=== PATIENT | male | born 1960 | race Caucasian/White ===

== ENCOUNTER 2016-12-12 11:14 | Emergency (ER) | payer MEDICARE ==
--- NOTE | 2016-12-12 11:36 | ERNOTE ---
ER Male HPI Date of Service: 12/12/16 Stated Complaint: UTI Time Seen by Provider: 12/12/16 11:30 Source: patient Exam Limitations: no limitations Immunizations: IMMUNIZATION HX Immunizations Up to Date No History of Influenza Vaccine No Hx Pneumococcal Vaccination No Allergies/Adverse Reactions: Allergies latex Allergy (Verified 12/22/15 15:28) Home Medications: HOME MEDICATIONS Alprazolam [Alprazolam Odt] 2 mg PO QID 02/24/14 [Last Taken Unknown] fentaNYL [Duragesic] 50 mcg ID Q72H 02/24/14 [Last Taken Unknown] Oxycodone HCl [Oxycontin] 40 mg PO HS 07/17/14 [Last Taken Unknown] Oxycodone HCl [Oxycontin] 80 mg PO DAILY 07/17/14 [Last Taken Unknown] Carisoprodol [Soma] 350 mg PO QID 10/25/15 [Last Taken Unknown] Ciprofloxacin HCl [Cipro] 500 mg PO BID #20 tab 12/12/16 [Last Taken Unknown] - History of Present Illness Narrative: 56yo, M, presents to ER for concerns of UTI. Hx of spinal injury and uses self cath at home. He does urinate without cath at times. He reports burning with catheterization for the past few months, although has not had a UA or culture performed since onset. Also reports some dysuria and foul urine odor when he voids without catheter, along with some increase in urinary frequency. Sexual [place] History: Present: not active Modifying Factors - (Worsens): Present: urinating, other - catheterization Associated Symptoms: Present: urinary frequency, loss of bladder control. Absent: fever/chills, nausea, vomiting, abdominal pain Prior Treatment: Present: other - none Review of Systems - Review of Systems Constitutional: Present: fatigue. Absent: fever, chills Respiratory: Absent: shortness of breath, cough Gastrointestinal/Abdominal: Absent: nausea, vomiting, abdominal pain Genitourinary: Present: frequency, dysuria. Absent: hematuria, discharge Musculoskeletal: Absent: back pain - denies acute pain Skin: Absent: rash - Patient's Past Medical History Patient History - Medical: Anxiety, Chronic Pain, Depression Patient History - Cardiac/Respiratory: No pertinent hx Patient History - Cancer: No Hx of Cancer Patient History - Surgical Procedures: Other Patient History - Other: None - Social History Living Situations: home Abuse History: No History of abuse Psych History: Hx of Anxiety, Hx of Depression Smoking Status: Current every day smoker Have you smoked in the past 12 months: Yes Do you dip or chew tobacco: No Alcohol Use: none Drug Use: marijuana - Immunizations Immunizations Up to Date: No Hx Pneumococcal Vaccination: No History of Influenza Vaccine: No Physical Exam - Physical Exam General Appearance: Present: wd/wn, alert, no apparent distress Respiratory: Present: no respiratory distress, normal breath sounds. Absent: rales, rhonchi, wheezing Cardiovascular/Chest: Present: regular rate, rhythm, no murmur Peripheral Pulses: N=norm/S=strong/W=weak/B=bound/A=absent: Radial (R): Normal, Radial (L): Normal Gastrointestinal/Abdominal: Present: normal bowel sounds, nontender, nondistended, soft, no organomegaly Back Exam: Present: no CVA tenderness Skin Exam: Present: normal color, warm/dry ED Progress - Date and Time Seen: Date and Time: 12/12/16 12:45 Reviewed dc instructions and tx plan. He v/u will return to ER if symptoms worsen or do not improve. He is scheduled to see his PCP on next week and will keep appt. - Vital Signs Vital Signs: Vital Signs 12/12/16 11:17 Temperature 37.1 C Pulse Rate 83 Respiratory 15 Rate Blood Pressure 155/100 O2 Sat by Pulse 96 Oximetry - Progress/Reassessment Chief Complaint: Genitourinary Problem Departure Clinical Impression: UTI (urinary tract infection) Qualifiers: Urinary tract infection type: acute cystitis Hematuria presence: without hematuria Qualified Code(s): N30.00 - Acute cystitis without hematuria - Departure Disposition: Home self-care Condition: Good Instructions: Urinary Tract Infection, Adult, [id number] Additional Instructions: Adequate fluid intake Start antibiotics today Schedule follow up appt with your doctor for recheck in 7-10 days Seek re-evaluation in ER if symptoms worsen Prescriptions: Ciprofloxacin HCl [Cipro] 500 mg PO BID #20 tab
[2016-12-12 11:57] LABS: Urine Bilirubin 1 mg/dl (NEGATIVE); Urine Blood Negative /ul (NEGATIVE); Urine Ketone 5 mg/dL (NEGATIVE); Urine Nitrite Negative (NEGATIVE); Urine Protein Negative (NEGATIVE); Urine Specific Gravity >=1.030 SP.GR. (1.005-1.030); Urine Urobilinogen Normal (NORMAL); Urine pH 5.5 pH (5.0-7.0)
--- OUTSIDE RECORDS SUMMARY | 2016-12-12 12:02 | XMS REPORT | Summary of Care ---
:1960 Author Organization [facility] Care Team Providers Name Role Phone EzeTevin granger Jess Primary Care Physician Encounter Date(s): 09/27/16 - 09/27/[address] [address] Discharge Disposition: 01 Discharged to Home or Self Care Attending Physician: Marin Flores DO Admitting Physician: Marin Flores DO Vital Signs Most recent to oldest [Reference 1 2 3 Range]: Temperature Temporal Artery 36.9 DegC 37.2 DegC [36-38 DegC] (09/27/16 1:40 PM) (09/27/16 12:43 PM) Heart Rate Monitored [60-100 bpm] 73 bpm 81 bpm 69 bpm (09/27/16 1:55 PM) (09/27/16 1:50 PM) (09/27/16 1:45 PM) Respiratory Rate [12-20 br/min] 15 br/min 20 br/min 12 br/min (09/27/16 2:06 PM) (09/27/16 1:50 PM) (09/27/16 1:45 PM) SpO2 [90-100 %] 100 % 97 % 98 % (09/27/16 2:06 PM) (09/27/16 1:55 PM) (09/27/16 1:50 PM) SpO2 Location Right hand Right hand (09/27/16 2:06 PM) (09/27/16 12:43 PM) Blood Pressure [90-130/60-90 135/73mmHg 139/84mmHg 121/86mmHg mmHg] *HI* *HI* (09/27/16 1:50 PM) (09/27/16 2:06 PM) (09/27/16 1:55 PM) Most recent to oldest [Reference Range]: 1 2 3 Height/Length Measured 173 cm (09/27/16 12:43 PM) Height/Length Estimated 175 cm (09/25/16 1:50 PM) Weight Estimated 59.9 kg (09/25/16 1:50 PM) Weight Dosing 60.1 kg (09/27/16 12:43 PM) Weight Measured 60.1 kg (09/27/16 12:43 PM) Body Mass Index Measured 20.08 kg/m2 (09/27/16 12:43 PM) Problem List Condition Effective Dates Status Health Status Informant Balance impairment(Confirmed) Active Spinal cord injury(Confirmed) Active Weakness - general(Confirmed) Active Allergies, Adverse Reactions, Alerts No Known Medication Allergies Medications acetaminophen 325 mg oral tablet 2 tab(s), Oral, q6hr, PRN other (see comment), 0 Refill(s), Start Date: 11:34:00 CDT Start Date: 12/17/14 Stop Date: 01/12/15 Status: Completedalbuterol CFC free 90 mcg/inh inhalation aerosol 2 puff(s), Inhale, q4hr, PRN for wheezing, # 1 EA, 1 Refill(s), Start Date: 9:31:00 CDT, Pharmacy: [place] Start Date: 01/12/15 Stop Date: 03/13/15 Status: OrderedAmbien CR 12.5 mg, Oral, HS, 0 Refill(s) Start Date: 09/02/13 Stop Date: 12/15/14 Status: DiscontinuedAmbien CR 12.5 mg oral tablet, extended release 1 tab(s), Oral, HS, PRN for sleep, 0 Refill(s), Start Date: 12/15/14 15:58:00 CDT Start Date: 12/15/14 Stop Date: 07/05/16 Status: CompletedBactrim DS 800 mg-160 mg oral tablet 1 tab(s), Oral, BID, X 10 days, # 20 tab(s), 0 Refill(s) Start Date: 09/02/13 Stop Date: 09/12/13 Status: CompletedCipro 500 mg oral tablet 1 tab(s), Oral, q12hr, # 20 tab(s), 0 Refill(s), Start Date: 03/29/15 19:00:00 MACHINE STRIPER Start Date: 03/29/15 Stop Date: 07/03/16 Status: CompletedDiflucan 100 mg oral tablet 1 tab(s), Oral, Daily, # 7 tab(s), 0 Refill(s), Start Date: 01/15/15 13:33:00 CDT, Pharmacy: [place], [place] Start Date: 01/15/15 Stop Date: 07/05/16 Status: CompletedDulcolax Laxative 10 mg rectal suppository 1 supp, SD, Daily, PRN for constipation, # 10 supp, 0 Refill(s) Start Date: 10/03/13 Stop Date: 08/24/16 Status: DiscontinuedDulcolax Stool Softener 100 mg oral capsule 1 cap(s), Oral, BID, PRN for constipation, # 20 cap(s), 0 Refill(s), Start Date : 03/29/15 19:01:00 MACHINE STRIPER Start Date: 03/29/15 Status: OrderedfentaNYL 50 mcg/hr transdermal film, extended release 50 mcg=, Topical, q3day, 0 Refill(s), Start Date: 12/15/14 16:01:00 CDT Start Date: 12/15/14 Status: OrderedfentaNYL 50 mcg/hr transdermal film, extended release 1 patch(es), Topical, q3day, 0 Refill(s) Start Date: 10/21/13 Stop Date: 12/15/14 Status: DiscontinuedFleet Enema mL, SD, ONETIME, 0 Refill(s), Start Date: 12/15/14 16:06:00 CDT Start Date: 12/15/14 Stop Date: 12/17/14 Status: DiscontinuedFlexeril 10 mg, Oral, TID, 0 Refill(s) Start Date: 09/02/13 Stop Date: 07/05/16 Status: CompletedGaviLyte-G oral powder for reconstitution 240 mL, Oral, Daily, # 4,000 mL, 0 Refill(s), Start Date: 08/24/16 13:53:00 CDT , Pharmacy: [place], [place] Start Date: 08/24/16 Stop Date: 09/27/16 Status: CompletedGoLYTELY oral powder for reconstitution 240 mL, Oral, q15min, # 4,000 mL, 0 Refill(s), Start Date: 08/22/16 10:20:00 CDT , Pharmacy: [place], [place] Start Date: 08/22/16 Stop Date: 08/24/16 Status: CompletedGoLYTELY oral powder for reconstitution 240 mL, Oral, q15min, # 4,000 mL, 0 Refill(s), Start Date: 08/24/16 13:02:05 CDT , Pharmacy: [place], [place] Start Date: 08/24/16 Stop Date: 09/27/16 Status: CompletedLinzess 145 mcg oral capsule 1 cap(s), Oral, Daily, 0 Refill(s) Start Date: 01/13/14 Stop Date: 07/03/16 Status: CompletedLinzess 145 mcg oral capsule 1 cap(s), Oral, Daily, # 8 cap(s), 0 Refill(s), Start Date: 08/22/16 10:04:00 CDT, samples given to patient (Rx) Start Date: 08/22/16 Status: Orderedmagnesium citrate 1.745 g/30 mL oral liquid 150 mL, Oral, ONETIME, # 300 mL, 0 Refill(s) Start Date: 10/03/13 Stop Date: 10/03/13 Status: Completedmagnesium citrate 1.745 g/30 mL oral liquid 150 mL, Oral, ONETIME, # 300 mL, 0 Refill(s), Start Date: 03/29/15 19:01:00 MACHINE STRIPER Start Date: 03/29/15 Stop Date: 03/29/15 Status: CompletedMiraLax 17 gm, Oral, Daily, 0 Refill(s), Start Date: 12/15/14 16:00:00 CDT Start Date: 12/15/14 Status: OrderedMoviPrep oral powder for reconstitution 240 mL, Oral, Daily, # 4,000 mL, 0 Refill(s), Start Date: 08/24/16 13:51:00 CDT Start Date: 08/24/16 Stop Date: 09/27/16 Status: CompletedOxyCONTIN 40 mg, Oral, HS, 0 Refill(s) Start Date: 09/02/13 Stop Date: 07/03/16 Status: CompletedOxyCONTIN 40 mg, Oral, at noon, 0 Refill(s) Special Instructions: at noon Start Date: 09/02/13 Stop Date: 07/03/16 Status: CompletedOxyCONTIN 80 mg, Oral, Daily, 0 Refill(s) Start Date: 09/02/13 Stop Date: 07/03/16 Status: CompletedOxyCONTIN 80 mg oral tablet, extended release 1 tab(s), Oral, Daily, PRN pain moderate 4-7, 0 Refill(s), Start Date: 07/05/16 12:34:00 MACHINE STRIPER Start Date: 07/05/16 Status: OrderedPercocet 7.5/325 1 tab(s), Oral, q6hr interval, PRN pain moderate 4-7, 0 Refill(s), Start Date: 12/15/14 16:00:00 CDT Start Date: 12/15/14 Status: OrderedPercocet 7.5/325 1 tab(s), Oral, QID, 0 Refill(s) Start Date: 09/02/13 Stop Date: 12/15/14 Status: DiscontinuedRelistor 12 mg/0.6 mL subcutaneous kit 0 Refill(s), Start Date: 12/15/14 16:05:00 CDT Special Instructions: once a day every Sun, Sun and Sun Start Date: 12/15/14 Stop Date: 12/16/14 Status: DiscontinuedRelistor 12 mg/0.6 mL subcutaneous kit Subcutaneous, 3x/Wk, every Sunday, Sunday and Sunday, 0 Refill(s), Start Date : 12/16/14 0:23:00 CDT Special Instructions: every Sunday, Sunday and Sunday Start Date: 12/16/14 Stop Date: 07/05/16 Status: CompletedSoma 350 mg oral tablet 1 tab(s), Oral, TID, 0 Refill(s), Start Date: 07/05/16 12:30:00 MACHINE STRIPER Start Date: 07/05/16 Status: OrderedSymbicort 160 mcg-4.5 mcg/inh inhalation aerosol 2 puff(s), Inhale, BID, # 1 EA, 5 Refill(s), Start Date: 01/12/15 9:36:00 CDT, samples given to patient (Rx), [id number], 01/26/16 Start Date: 01/12/15 Stop Date: 07/11/15 Status: OrderedXanax 2 mg oral tablet 1 tab(s), Oral, QID, PRN for anxiety, 0 Refill(s), Start Date: 12/15/14 15:59: 00 CDT Start Date: 12/15/14 Status: OrderedZoloft 50 mg oral tablet tab(s), Oral, BID, 0 Refill(s), Start Date: 12/15/14 16:00:00 CDT Start Date: 12/15/14 Stop Date: 01/12/15 Status: Completed Results Patient Viewable Results Most recent to oldest [Reference 1 2 3 Range]: AN - Fi O2 27 % % 26 % % 26 % % (09/27/16 1:35 PM) (09/27/16 1:30 PM) (09/27/16 1:25 PM) Estimated Creatinine Clearance 139.12 mL/min (09/27/16 12:45 PM) Immunizations Vaccine Date Refusal Reason influenza virus vaccine, inactivated 03/28/14 pneumococcal 23-polyvalent vaccine 03/30/14 Procedures Procedure Date Related Diagnosis Body Site Colonoscopy1 09/27/16 Colonoscopy2 08/03/16 Esophagogastroduodenoscopy3 07/06/16 Direct Laryngoscopy4 02/08/15 Flexible Bronchoscopy5 01/15/15 Colonoscopy6 12/17/14 Esophagogastroduodenoscopy7 12/17/14 Colonoscopy and biopsy of colon Discectomy8 1auto-populated from documented surgical [id number] from documented surgical [id number] from documented surgical [id number]-[id number] from documented surgical [id number] from documented surgical [id number]- populated from documented surgical [id number] from documented surgical [id number] Social History No data available for this section Assessment and Plan No data available for this section
--- OUTSIDE RECORDS SUMMARY | 2016-12-12 12:02 | XMS REPORT | Summary of Care ---
:1960 Author Organization [facility] Address [address] [place] [address] [address] [place] [address] Care Team Providers Name Role Phone Tevin Al Primary Care Physician Encounter Date(s): 07/03/16 - 07/03/16 [facility] [address] [place] [address] [address] [place] [address]- Discharge Diagnosis: Lack of appetite Discharge Diagnosis: Nausea and vomiting Discharge Diagnosis: Constipation Discharge Diagnosis: Abdominal cramps Discharge Diagnosis: Diarrhea Discharge Disposition: 01 Discharged to Home or Self Care Attending Physician: Marin Flores DO Referring Physician: Marin Flores DO Vital Signs Most recent to oldest [Reference Range]: 1 Peripheral Pulse Rate [60-100 bpm] 90 bpm (07/03/16 1:44 PM) Blood Pressure [90-130/60-90 mmHg] 110/74mmHg (07/03/16 1:44 PM) Mean Arterial Pressure, Cuff 86 mmHg (07/03/16 1:44 PM) Most recent to oldest [Reference Range]: 1 Height/Length Measured 172 cm (07/03/16 1:44 PM) Weight Dosing 66 kg (07/03/16 1:44 PM) Weight Measured 66 kg (07/03/16 1:44 PM) BSA Measured 1.78 m2 (07/03/16 1:44 PM) Body Mass Index Measured 22.31 kg/m2 (07/03/16 1:44 PM) Problem List Condition Effective Dates Status [...] 1 Refill(s), Start Date: 9:31:00 CDT, Pharmacy: [place], [place] Start Date: 01/12/15 Stop Date: 03/13/15 Status: OrderedAmbien CR 12.5 mg, Oral, HS, 0 Refill(s) Start Date: 09/02/13 Stop Date: 12/15/14 Status: DiscontinuedAmbien CR 12.5 mg oral tablet, extended release 1 tab(s), Oral, HS, PRN for sleep, 0 Refill(s), Start Date: 12/15/14 15:58:00 CDT Start Date: 12/15/14 Status: OrderedBactrim DS 800 mg-160 mg oral tablet 1 tab(s), Oral, BID, X 10 days, # 20 tab(s), 0 Refill(s) Start Date: 09/02/13 Stop Date: 09/12/13 Status: CompletedCipro 500 mg oral tablet 1 tab(s), Oral, q12hr, # 20 tab(s), 0 Refill(s), Start Date: 03/29/15 19:00:00 CLOUD PHYSICIST Start Date: 03/29/15 Stop Date: 07/03/16 Status: CompletedDiflucan 100 mg oral tablet 1 tab(s), Oral, Daily, # 7 tab(s), 0 Refill(s), Start Date: 01/15/15 13:33:00 CDT, Pharmacy: [place], [place] Start Date: 01/15/15 Stop Date: 01/22/15 Status: OrderedDulcolax Laxative 10 mg rectal suppository 1 supp, [place], Daily, PRN for constipation, # 10 supp, 0 Refill(s) Start Date: 10/03/13 Status: OrderedDulcolax Stool Softener 100 mg oral capsule 1 cap(s), Oral, BID, PRN for constipation, # 20 cap(s), 0 Refill(s), Start Date : 03/29/15 19:01:00 CLOUD PHYSICIST Start Date: 03/29/15 Status: OrderedfentaNYL 50 mcg/hr transdermal film, extended release 0 Refill(s), Start Date: 12/15/14 16:01:00 CDT Start Date: 12/15/14 Status: OrderedfentaNYL 50 mcg/hr transdermal film, extended release 1 patch(es), Topical, q3day, 0 Refill(s) Start Date: 10/21/13 Stop Date: 12/15/14 Status: DiscontinuedFleet Enema mL, NC, ONETIME, 0 Refill(s), Start Date: 12/15/14 16:06:00 CDT Start Date: 12/15/14 Stop Date: 12/17/14 Status: DiscontinuedFlexeril 10 mg, Oral, TID, 0 Refill(s) Start Date: 09/02/13 Status: OrderedLinzess 145 mcg oral capsule 1 cap(s), Oral, Daily, 0 Refill(s) Start Date: 01/13/14 Stop Date: 07/03/16 Status: Completedmagnesium citrate 1.745 g/30 mL oral liquid 150 mL, Oral, ONETIME, # 300 mL, 0 Refill(s) Start Date: 10/03/13 Stop Date: 10/03/13 Status: Completedmagnesium citrate 1.745 g/30 mL oral liquid 150 mL, Oral, ONETIME, # 300 mL, 0 Refill(s), Start Date: 03/29/15 19:01:00 CLOUD PHYSICIST Start Date: 03/29/15 Stop Date: 03/29/15 Status: CompletedMiraLax gm, Oral, Daily, 0 Refill(s), Start Date: 12/15/14 16:00:00 CDT Start Date: 12/15/14 Status: OrderedOxyCONTIN 40 mg, Oral, HS, 0 Refill(s) Start Date: 09/02/13 Stop Date: 07/03/16 Status: CompletedOxyCONTIN 40 mg, Oral, at noon, 0 Refill(s) Special Instructions: at noon Start Date: 09/02/13 Stop Date: 07/03/16 Status: CompletedOxyCONTIN 80 mg, Oral, Daily, 0 Refill(s) Start Date: 09/02/13 Stop Date: 07/03/16 Status: CompletedPercocet 7.5/325 1 tab(s), Oral, q6hr interval, 0 Refill(s), Start Date: 12/15/14 16:00:00 CDT [...] Sunday, Sunday and Sunday Start Date: 12/16/14 Status: OrderedSymbicort 160 mcg-4.5 mcg/inh inhalation aerosol 2 puff(s), Inhale, BID, # 1 EA, 5 Refill(s), Start Date: 01/12/15 9:36:00 CDT, samples given to patient (Rx), [id number], 01/26/16 Start Date: 01/12/15 Stop Date: 07/11/15 Status: OrderedXanax 2 mg oral tablet 1 tab(s), Oral, QID, PRN for anxiety, 0 Refill(s), Start Date: 12/15/14 15:59: 00 CDT Start Date: 12/15/14 Status: OrderedZoloft 50 mg oral tablet tab(s), Oral, BID, 0 Refill(s), Start Date: 12/15/14 16:00:00 CDT Start Date: 12/15/14 Stop Date: 01/12/15 Status: Completed Results No data available for this section Immunizations Vaccine Date Refusal Reason influenza virus vaccine, inactivated 03/28/14 pneumococcal 23-polyvalent vaccine 03/30/14 Procedures Procedure Date Related Diagnosis Body Site Direct Laryngoscopy1 02/08/15 Flexible Bronchoscopy2 01/15/15 Colonoscopy3 12/17/14 Esophagogastroduodenoscopy4 12/17/14 Colonoscopy and biopsy of colon Discectomy5 1auto-populated from documented surgical [id number] from documented surgical [id number] from documented surgical [id number] from documented surgical [id number] Social History No data available for this section Assessment and Plan No data available for this section
--- OUTSIDE RECORDS SUMMARY | 2016-12-12 12:03 | XMS REPORT | Summary of Care ---
:1960 Author Organization [facility] Address [address] [place] [id number]- Care Team Providers Name Role Phone Ezeelkin Tevin Mercado Primary Care Physician Encounter Date(s): 07/13/16 - 07/13/[address] [address]- [facility] Discharge Disposition: 01 Discharged to Home or Self Care Attending Physician: Marin Flores DO Admitting Physician: Marin Flores DO Vital Signs No data available for this section Problem List Condition Effective Dates Status Health [...] 1 Refill(s), Start Date: 9:31:00 CDT, Pharmacy: [facility] [place], [place] Start Date: 01/12/15 Stop Date: 03/13/15 [...] tab(s), 0 Refill(s), Start Date: 03/29/15 19:00:00 GAS PUMPER Start Date: 03/29/15 Stop Date: 07/03/16 Status: CompletedDiflucan 100 mg oral tablet 1 tab(s), Oral, Daily, # 7 tab(s), 0 Refill(s), Start Date: 01/15/15 13:33:00 CDT, Pharmacy: [place], [place] Start Date: 01/15/15 Stop Date: 07/05/16 Status: CompletedDulcolax Laxative 10 mg rectal suppository 1 supp, [place], Daily, PRN for constipation, # 10 supp, 0 Refill(s) Start Date: 10/03/13 Status: OrderedDulcolax Stool Softener 100 mg oral capsule 1 cap(s), Oral, BID, PRN for constipation, # 20 cap(s), 0 Refill(s), Start Date : 03/29/15 19:01:00 GAS PUMPER Start Date: 03/29/15 Status: OrderedfentaNYL 50 mcg/hr transdermal film, extended release 50 mcg=, Topical, q3day, 0 Refill(s), Start Date: 12/15/14 16:01:00 CDT Start Date: 12/15/14 Status: OrderedfentaNYL 50 mcg/hr transdermal film, extended release 1 patch(es), Topical, q3day, 0 Refill(s) Start Date: 10/21/13 Stop Date: 12/15/14 Status: DiscontinuedFleet Enema mL, [place], ONETIME, 0 Refill(s), Start Date: 12/15/14 16:06:00 CDT Start Date: 12/15/14 Stop Date: 12/17/14 Status: DiscontinuedFlexeril 10 mg, Oral, TID, 0 Refill(s) Start Date: 09/02/13 Stop Date: 07/05/16 Status: CompletedLinzess 145 mcg oral capsule 1 cap(s), Oral, Daily, 0 Refill(s) Start Date: 01/13/14 Stop Date: 07/03/16 Status: Completedmagnesium citrate 1.745 g/30 mL oral liquid 150 mL, Oral, ONETIME, # 300 mL, 0 Refill(s) Start Date: 10/03/13 Stop Date: 10/03/13 Status: Completedmagnesium citrate 1.745 g/30 mL oral liquid 150 mL, Oral, ONETIME, # 300 mL, 0 Refill(s), Start Date: 03/29/15 19:01:00 GAS PUMPER Start Date: 03/29/15 Stop Date: 03/29/15 Status: [...] 4-7, 0 Refill(s), Start Date: 07/05/16 12:34:00 GAS PUMPER Start Date: 07/05/16 Status: OrderedPercocet 7.5/325 1 [...] TID, 0 Refill(s), Start Date: 07/05/16 12:30:00 GAS PUMPER Start Date: 07/05/16 Status: OrderedSymbicort 160 mcg-4.5 mcg/inh inhalation aerosol 2 puff(s), Inhale, BID, # 1 EA, 5 Refill(s), Start Date: 01/12/15 9:36:00 CDT, samples given to patient (Rx), [id number], 01/26/16 Start Date: 01/12/15 Stop Date: 07/11/15 [...] Procedures Procedure Date Related Diagnosis Body Site Esophagogastroduodenoscopy1 07/06/16 Direct Laryngoscopy2 02/08/15 Flexible Bronchoscopy3 01/15/15 Colonoscopy4 12/17/14 Esophagogastroduodenoscopy5 12/17/14 Colonoscopy and biopsy of colon Discectomy6 1auto-populated from documented surgical [id number] from documented surgical [id number] from documented surgical [id number]-[id number] from documented surgical [id number] from documented surgical [id number] Social History No data available for this section Assessment and Plan No data available for this section
--- OUTSIDE RECORDS SUMMARY | 2016-12-12 12:03 | XMS REPORT | Summary of Care ---
:1960 Author Organization [facility] Address [address] [place] [address] [address] [place] [address] Care Team Providers Name Role Phone Ezeelkin Tevin Mercado Primary Care Physician Encounter Date(s): 12/05/16 - 12/05/16 [facility] [address] [place] [address] [address] [place] [address]- Discharge Disposition: 01 Discharged to Home or Self Care Attending Physician: CHILANGO Brumfield Referring Physician: Marin Flores, Vital Signs No data available for this [...] 1 Refill(s), Start Date: 9:31:00 CDT, Pharmacy: [facility] - [place], [place] Start Date: 01/12/15 Stop Date: 03/13/15 [...] tab(s), 0 Refill(s), Start Date: 03/29/15 19:00:00 WEB ART DIRECTOR Start Date: 03/29/15 Stop Date: 07/03/16 Status: CompletedDiflucan 100 mg oral tablet 1 tab(s), Oral, Daily, # 7 tab(s), 0 Refill(s), Start Date: 01/15/15 13:33:00 CDT, Pharmacy: [place], [place] Start Date: 01/15/15 Stop Date: 07/05/16 Status: CompletedDulcolax Laxative 10 mg rectal suppository 1 supp, [place], Daily, PRN for constipation, # 10 supp, 0 Refill(s) Start Date: 10/03/13 Stop Date: 08/24/16 Status: DiscontinuedDulcolax Stool Softener 100 mg oral capsule 1 cap(s), Oral, BID, PRN for constipation, # 20 cap(s), 0 Refill(s), Start Date : 03/29/15 19:01:00 WEB ART DIRECTOR Start Date: 03/29/15 Status: OrderedfentaNYL 50 mcg/hr transdermal film, extended release 50 mcg=, Topical, q3day, 0 Refill(s), Start Date: 12/15/14 16:01:00 CDT Start Date: 12/15/14 Status: OrderedfentaNYL 50 mcg/hr transdermal film, extended release 1 patch(es), Topical, q3day, 0 Refill(s) Start Date: 10/21/13 Stop Date: 12/15/14 Status: DiscontinuedFleet Enema mL, CO, ONETIME, 0 Refill(s), Start Date: 12/15/14 16:06:00 CDT Start Date: 12/15/14 Stop Date: 12/17/14 Status: DiscontinuedFlexeril 10 mg, Oral, TID, 0 Refill(s) Start Date: 09/02/13 Stop Date: 07/05/16 Status: CompletedGaviLyte-G oral powder for reconstitution 240 mL, Oral, Daily, # 4,000 mL, 0 Refill(s), Start Date: 08/24/16 13:53:00 CDT , Pharmacy: [place], [place] Start Date: 08/24/16 Stop Date: 09/27/16 Status: CompletedGoLYTELY oral powder for reconstitution 240 mL, Oral, q15min, # 4,000 mL, 0 Refill(s), Start Date: 08/22/16 10:20:00 CDT , Pharmacy: [place], [place] Start Date: 08/22/16 Stop Date: 08/24/16 Status: CompletedGoLYTELY oral powder for reconstitution 240 mL, Oral, q15min, # 4,000 mL, 0 Refill(s), Start Date: 08/24/16 13:02:05 CDT , Pharmacy: [place], [place] Start Date: 08/24/16 Stop Date: 09/27/16 [...] mL, 0 Refill(s), Start Date: 03/29/15 19:01:00 WEB ART DIRECTOR Start Date: 03/29/15 Stop Date: 03/29/15 Status: [...] 4-7, 0 Refill(s), Start Date: 07/05/16 12:34:00 WEB ART DIRECTOR Start Date: 07/05/16 Status: OrderedPercocet 7.5/325 1 [...] TID, 0 Refill(s), Start Date: 07/05/16 12:30:00 WEB ART DIRECTOR Start Date: 07/05/16 Status: OrderedSymbicort 160 mcg-4.5 mcg/inh inhalation aerosol 2 puff(s), Inhale, BID, # 1 EA, 5 Refill(s), Start Date: 01/12/15 9:36:00 CDT, samples given to patient (Rx), [id number], 01/26/16 Start Date: 01/12/15 Stop Date: 07/11/15 [...] of colon Discectomy8 1auto-populated from documented surgical ydcm6yzpm-zhbqbtxuz from documented surgical leba4hciz-yvhbaqtkm from documented surgical fvpl5njyh-gasrmetxk from documented surgical udad5qtna-uiiigrtpu from documented surgical ydyr2vcom- populated from documented surgical ayyh5boud-zbhjhtvap from documented surgical [id number] Social History No data available for this section Assessment and Plan No data available for this section
--- OUTSIDE RECORDS SUMMARY | 2016-12-12 12:03 | XMS REPORT | Summary of Care ---
:1960 Author Organization [facility] Address [address] [place] [address] [address] [place] [address] Care Team Providers Name Role Phone Tevin Al Primary Care Physician Encounter Date(s): 08/22/16 - 08/22/16 [facility] [address] [place] [address] [address] [place] [address]- Discharge Diagnosis: Chronic constipation Discharge Diagnosis: Change in bowel function Discharge Diagnosis: Unintended weight loss Discharge Disposition: 01 Discharged to Home or Self Care Attending Physician: CHILANGO Brumfield Referring Physician: Marin Flores DO Vital Signs Most recent to oldest [Reference Range]: 1 Peripheral Pulse Rate [60-100 bpm] 66 bpm (08/22/16 9:28 AM) Blood Pressure [90-130/60-90 mmHg] 115/74mmHg (08/22/16 9:28 AM) Mean Arterial Pressure, Cuff 88 mmHg (08/22/16 9:28 AM) Most recent to oldest [Reference Range]: 1 Height/Length Measured 173 cm (08/22/16 9:28 AM) Height/Length Estimated 173 cm (08/22/16 9:28 AM) Weight Estimated 60.7 kg (08/22/16 9:28 AM) Weight Dosing 60.7 kg (08/22/16 9:28 AM) Weight Measured 60.7 kg (08/22/16 9:28 AM) BSA Measured 1.73 m2 (08/22/16 9:28 AM) BSA Estimated 1.71 m2 (08/22/16 9:28 AM) Body Mass Index Measured 20.28 kg/m2 (08/22/16 9:28 AM) Body Mass Index Estimated 20.28 kg/m2 (08/22/16 9:28 AM) Problem List Condition Effective Dates Status Health [...] 1 Refill(s), Start Date: 9:31:00 CDT, Pharmacy: [place], [place] Start Date: 01/12/15 Stop Date: 03/13/15 [...] tab(s), 0 Refill(s), Start Date: 03/29/15 19:00:00 SECTION GANG WORKER Start Date: 03/29/15 Stop Date: 07/03/16 Status: CompletedDiflucan 100 mg oral tablet 1 tab(s), Oral, Daily, # 7 tab(s), 0 Refill(s), Start Date: 01/15/15 13:33:00 CDT, Pharmacy: [place], [place] Start Date: 01/15/15 Stop Date: 07/05/16 Status: CompletedDulcolax Laxative 10 mg rectal suppository 1 supp, [place], Daily, PRN for constipation, # 10 supp, 0 Refill(s) Start Date: 10/03/13 Status: OrderedDulcolax Stool Softener 100 mg oral capsule 1 cap(s), Oral, BID, PRN for constipation, # 20 cap(s), 0 Refill(s), Start Date : 03/29/15 19:01:00 SECTION GANG WORKER Start Date: 03/29/15 Status: OrderedfentaNYL 50 mcg/hr transdermal film, extended release 50 mcg=, Topical, q3day, 0 Refill(s), Start Date: 12/15/14 16:01:00 CDT Start Date: 12/15/14 Status: OrderedfentaNYL 50 mcg/hr transdermal film, extended release 1 patch(es), Topical, q3day, 0 Refill(s) Start Date: 10/21/13 Stop Date: 12/15/14 Status: DiscontinuedFleet Enema mL, [place], ONETIME, 0 Refill(s), Start Date: 12/15/14 16:06:00 CDT Start Date: 12/15/14 Stop Date: 12/17/14 Status: DiscontinuedFlexeril 10 mg, Oral, TID, 0 Refill(s) Start Date: 09/02/13 Stop Date: 07/05/16 Status: CompletedGoLYTELY oral powder for reconstitution 240 mL, Oral, q15min, # 4,000 mL, 0 Refill(s), Start Date: 08/22/16 10:20:00 CDT , Pharmacy: [place], [place] Start Date: 08/22/16 Status: OrderedLinzess 145 mcg oral capsule 1 [...] mL, 0 Refill(s), Start Date: 03/29/15 19:01:00 SECTION GANG WORKER Start Date: 03/29/15 Stop Date: 03/29/15 Status: [...] 4-7, 0 Refill(s), Start Date: 07/05/16 12:34:00 SECTION GANG WORKER Start Date: 07/05/16 Status: OrderedPercocet 7.5/325 1 [...] TID, 0 Refill(s), Start Date: 07/05/16 12:30:00 SECTION GANG WORKER Start Date: 07/05/16 Status: OrderedSymbicort 160 mcg-4.5 mcg/inh inhalation aerosol 2 puff(s), Inhale, BID, # 1 EA, 5 Refill(s), Start Date: 01/12/15 9:36:00 CDT, samples given to patient (Rx), [id number], 01/26/16 Start Date: 01/12/15 Stop Date: 07/11/15 [...] Procedure Date Related Diagnosis Body Site Colonoscopy1 08/03/16 Esophagogastroduodenoscopy2 07/06/16 Direct Laryngoscopy3 02/08/15 Flexible Bronchoscopy4 01/15/15 Colonoscopy5 12/17/14 Esophagogastroduodenoscopy6 12/17/14 Colonoscopy and biopsy of colon Discectomy7 1auto-populated from documented surgical vzyi7vume-krrdtabxu from documented surgical obbl7hvcn-apalhbiro from documented surgical pqpa2cujc-ruayraxsq from documented surgical hcke0hmlh-mvttsjmek from documented surgical dylz1gzpi- populated from documented surgical [id number] Social History No data available for this section Assessment and Plan No data available for this section
--- OUTSIDE RECORDS SUMMARY | 2016-12-12 12:03 | XMS REPORT | Summary of Care ---
:1960 Author Organization [facility] Address [address] [place] [address]- Care Team Providers Name Role Phone Tevin Al Primary Care Physician Encounter Date(s): 08/04/16 - 08/04/[address] [address]- [facility] Discharge Disposition: 01 Discharged to Home or [...] 1 Refill(s), Start Date: 9:31:00 CDT, Pharmacy: [facility] - [place], [place] Start Date: 01/12/15 Stop Date: 03/13/15 [...] tab(s), 0 Refill(s), Start Date: 03/29/15 19:00:00 RETAIL LOAN ORIGINATOR Start Date: 03/29/15 Stop Date: 07/03/16 Status: CompletedDiflucan 100 mg oral tablet 1 tab(s), Oral, Daily, # 7 tab(s), 0 Refill(s), Start Date: 01/15/15 13:33:00 CDT, Pharmacy: [place], [place] Start Date: 01/15/15 Stop Date: 07/05/16 Status: CompletedDulcolax Laxative 10 mg rectal suppository 1 supp, CO, Daily, PRN for constipation, # 10 supp, 0 Refill(s) Start Date: 10/03/13 Status: OrderedDulcolax Stool Softener 100 mg oral capsule 1 cap(s), Oral, BID, PRN for constipation, # 20 cap(s), 0 Refill(s), Start Date : 03/29/15 19:01:00 RETAIL LOAN ORIGINATOR Start Date: 03/29/15 Status: OrderedfentaNYL 50 mcg/hr [...] mL, 0 Refill(s), Start Date: 03/29/15 19:01:00 RETAIL LOAN ORIGINATOR Start Date: 03/29/15 Stop Date: 03/29/15 Status: [...] 4-7, 0 Refill(s), Start Date: 07/05/16 12:34:00 RETAIL LOAN ORIGINATOR Start Date: 07/05/16 Status: OrderedPercocet 7.5/325 1 [...] TID, 0 Refill(s), Start Date: 07/05/16 12:30:00 RETAIL LOAN ORIGINATOR Start Date: 07/05/16 Status: OrderedSymbicort 160 mcg-4.5 mcg/inh inhalation aerosol 2 puff(s), Inhale, BID, # 1 EA, 5 Refill(s), Start Date: 01/12/15 9:36:00 CDT, samples given to patient (Rx), [id number], 01/26/16 Start Date: 01/12/15 Stop Date: 07/11/15 [...] of colon Discectomy7 1auto-populated from documented surgical bmzm8qyid-gdaqvpdxa from documented surgical jewy4jqbo-yzbneziqw from documented surgical vtup0pzqg-pfawlhgag from documented surgical aujd8tqjk-bniothrly from documented surgical [id number]- populated from documented surgical [id number] Social History No data available for this section Assessment and Plan No data available for this section
--- OUTSIDE RECORDS SUMMARY | 2016-12-12 12:03 | XMS REPORT | Summary of Care ---
:[address] [facility] Address [address] [place] [address]- Care Team Providers Name Role Phone Ezeelkin Tevin Mercado Primary Care Physician Encounter Date(s): 07/12/16 - 07/12/[address] [address] [facility] Discharge Disposition: 01 Discharged to Home [...] 1 Refill(s), Start Date: 9:31:00 CDT, Pharmacy: [facility] - [place], [place] Start Date: 01/12/15 Stop Date: 03/13/15 [...] tab(s), 0 Refill(s), Start Date: 03/29/15 19:00:00 HAND VIOLIN MAKER Start Date: 03/29/15 Stop Date: 07/03/16 Status: CompletedDiflucan 100 mg oral tablet 1 tab(s), Oral, Daily, # 7 tab(s), 0 Refill(s), Start Date: 01/15/15 13:33:00 CDT, Pharmacy: [place], [place] Start Date: 01/15/15 Stop Date: 07/05/16 Status: CompletedDulcolax Laxative 10 mg rectal suppository 1 supp, [place], Daily, PRN for constipation, # 10 supp, 0 Refill(s) Start Date: 10/03/13 Status: OrderedDulcolax Stool Softener 100 mg oral capsule 1 cap(s), Oral, BID, PRN for constipation, # 20 cap(s), 0 Refill(s), Start Date : 03/29/15 19:01:00 HAND VIOLIN MAKER Start Date: 03/29/15 Status: OrderedfentaNYL 50 mcg/hr transdermal film, extended release 50 mcg=, Topical, q3day, 0 Refill(s), Start Date: 12/15/14 16:01:00 CDT Start Date: 12/15/14 Status: OrderedfentaNYL 50 mcg/hr transdermal film, extended release 1 patch(es), Topical, q3day, 0 Refill(s) Start Date: 10/21/13 Stop Date: 12/15/14 Status: DiscontinuedFleet Enema mL, [place], ONETIME, 0 Refill(s), Start Date: 12/15/14 16:06:00 [...] mL, 0 Refill(s), Start Date: 03/29/15 19:01:00 HAND VIOLIN MAKER Start Date: 03/29/15 Stop Date: 03/29/15 Status: [...] 4-7, 0 Refill(s), Start Date: 07/05/16 12:34:00 HAND VIOLIN MAKER Start Date: 07/05/16 Status: OrderedPercocet 7.5/325 1 [...] TID, 0 Refill(s), Start Date: 07/05/16 12:30:00 HAND VIOLIN MAKER Start Date: 07/05/16 Status: OrderedSymbicort 160 mcg-4.5 mcg/inh inhalation aerosol 2 puff(s), Inhale, BID, # 1 EA, 5 Refill(s), Start Date: 01/12/15 9:36:00 CDT, samples given to patient (Rx), [id number], 01/26/16 Start Date: 01/12/15 Stop Date: 07/11/15 [...] of colon Discectomy6 1auto-populated from documented surgical qxcw2flbx-qknrtcnui from documented surgical dcvo8pbqf-vrgrsebmf from documented surgical mayi3vnoj-xqithapda from documented surgical lwuv2fpjg-xcfqsfghg from documented surgical [id number] Social History No data available for this section Assessment and Plan No data available for this section
--- OUTSIDE RECORDS SUMMARY | 2016-12-12 12:03 | XMS REPORT | Summary of Care ---
:1960 Author Organization [facility] Address [facility] [place] [address]- Care Team Providers Name Role Phone Tevin Al Primary Care Physician Encounter Date(s): 07/06/16 - 07/06/[address] [address]- [facility] Discharge Disposition: 01 Discharged to Home or Self Care Attending Physician: Marin Flores DO Admitting Physician: Marin Flores DO Vital Signs Most recent to oldest [Reference 1 2 3 Range]: Temperature Temporal Artery 37 DegC 37.2 DegC [36-38 DegC] (07/06/16 1:28 PM) (07/06/16 12:54 PM) Heart Rate Monitored [60-100 bpm] 69 bpm 72 bpm 72 bpm (07/06/16 1:54 PM) (07/06/16 1:43 PM) (07/06/16 1:38 PM) Respiratory Rate [12-20 br/min] 16 br/min 18 br/min 18 br/min (07/06/16 1:54 PM) (07/06/16 1:43 PM) (07/06/16 1:38 PM) SpO2 98 % 99 % 99 % (07/06/16 1:54 PM) (07/06/16 1:43 PM) (07/06/16 1:38 PM) SpO2 Location Right hand Right hand Right hand (07/06/16 1:54 PM) (07/06/16 1:43 PM) (07/06/16 1:38 PM) Blood Pressure [90-130/60-90 119/70mmHg 105/53mmHg 102/68mmHg mmHg] (07/06/16 1:54 PM) (07/06/16 1:43 PM) (07/06/16 1:38 PM) Mean Arterial Pressure Monitor 64 mmHg 61 mmHg 63 mmHg Measure (07/06/16 1:43 PM) (07/06/16 1:38 PM) (07/06/16 1:33 PM) Most recent to oldest [Reference Range]: 1 2 3 Height/Length Measured 173 cm (07/06/16 12:54 PM) Height/Length Estimated 172.7 cm (07/05/16 12:24 PM) Weight Estimated 65.8 kg (07/05/16 12:24 PM) Weight Dosing 67.1 kg (07/06/16 12:54 PM) Weight Measured 67.1 kg (07/06/16 12:54 PM) Body Mass Index Measured 22.42 kg/m2 (07/06/16 12:54 PM) Problem List Condition Effective Dates Status [...] 1 Refill(s), Start Date: 9:31:00 CDT, Pharmacy: [place], [place] Start Date: 01/12/15 Stop Date: 03/13/15 [...] tab(s), 0 Refill(s), Start Date: 03/29/15 19:00:00 BUSINESS SYSTEMS MANAGER Start Date: 03/29/15 Stop Date: 07/03/16 Status: CompletedDiflucan 100 mg oral tablet 1 tab(s), Oral, Daily, # 7 tab(s), 0 Refill(s), Start Date: 01/15/15 13:33:00 CDT, Pharmacy: [place], [place] Start Date: 01/15/15 Stop Date: 07/05/16 Status: CompletedDulcolax Laxative 10 mg rectal suppository 1 supp, [place], Daily, PRN for constipation, # 10 supp, 0 Refill(s) Start Date: 10/03/13 Status: OrderedDulcolax Stool Softener 100 mg oral capsule 1 cap(s), Oral, BID, PRN for constipation, # 20 cap(s), 0 Refill(s), Start Date : 03/29/15 19:01:00 BUSINESS SYSTEMS MANAGER Start Date: 03/29/15 Status: OrderedfentaNYL 50 mcg/hr transdermal film, extended release 50 mcg=, Topical, q3day, 0 Refill(s), Start Date: 12/15/14 16:01:00 CDT Start Date: 12/15/14 Status: OrderedfentaNYL 50 mcg/hr transdermal film, extended release 1 patch(es), Topical, q3day, 0 Refill(s) Start Date: 10/21/13 Stop Date: 12/15/14 Status: DiscontinuedFleet Enema mL, [place], ONETIME, 0 Refill(s), Start Date: 12/15/14 16:06:00 [...] mL, 0 Refill(s), Start Date: 03/29/15 19:01:00 BUSINESS SYSTEMS MANAGER Start Date: 03/29/15 Stop Date: 03/29/15 Status: [...] 4-7, 0 Refill(s), Start Date: 07/05/16 12:34:00 BUSINESS SYSTEMS MANAGER Start Date: 07/05/16 Status: OrderedPercocet 7.5/325 1 tab(s), Oral, q6hr interval, PRN pain moderate 4-7, 0 Refill(s), Start Date: 12/15/14 16:00:00 CDT Start Date: 12/15/14 Status: OrderedPercocet 7.5/325 1 tab(s), Oral, QID, 0 Refill(s) Start Date: 09/02/13 Stop Date: 12/15/14 Status: DiscontinuedRelistor 12 mg/0.6 mL subcutaneous kit 0 Refill(s), Start Date: 12/15/14 16:05:00 CDT Special Instructions: once a day every Mon, Wed and Fri Start Date: 12/15/14 Stop Date: 12/16/14 Status: DiscontinuedRelistor 12 mg/0.6 mL subcutaneous kit Subcutaneous, 3x/Wk, every Sunday, Sunday and Sunday, 0 Refill(s), Start Date : 12/16/14 0:23:00 CDT Special Instructions: every Sunday, Sunday and Sunday Start Date: 12/16/14 Stop Date: 07/05/16 Status: CompletedSoma 350 mg oral tablet 1 tab(s), Oral, TID, 0 Refill(s), Start Date: 07/05/16 12:30:00 BUSINESS SYSTEMS MANAGER Start Date: 07/05/16 Status: OrderedSymbicort 160 mcg-4.5 mcg/inh inhalation aerosol 2 puff(s), Inhale, BID, # 1 EA, 5 Refill(s), Start Date: 01/12/15 9:36:00 CDT, samples given to patient (Rx), [id number], 01/26/16 Start Date: 01/12/15 Stop Date: 07/11/15 [...] 2 3 Range]: AN - Fi O2 88 % % 75 % % 25 % % (07/06/16 1:25 PM) (07/06/16 1:20 PM) (07/06/16 1:15 PM) Estimated Creatinine Clearance 155.32 mL/min (07/06/16 1:00 PM) Immunizations Vaccine Date Refusal Reason influenza virus vaccine, inactivated 03/28/14 pneumococcal 23-polyvalent vaccine 03/30/14 Procedures Procedure Date Related Diagnosis Body Site Esophagogastroduodenoscopy1 07/06/16 Direct Laryngoscopy2 02/08/15 Flexible Bronchoscopy3 01/15/15 Colonoscopy4 12/17/14 Esophagogastroduodenoscopy5 12/17/14 Colonoscopy and biopsy of colon Discectomy6 1auto-populated from documented surgical jpru4pdgj-yhstjttgs from documented surgical uobb4brlp-tmydgqzxq from documented surgical aiow5glqz-pgkleokdh from documented surgical akzv7xbek-aweftbiac from documented surgical [id number] Social History No data available for this section Assessment and Plan No data available for this section
--- OUTSIDE RECORDS SUMMARY | 2016-12-12 12:04 | XMS REPORT | Summary of Care ---
:1960 Author Organization [facility] Address [address] [place] [address] [address] [place] [address] Care Team Providers Name Role Phone Tevin Al Primary Care Physician Encounter Date(s): 08/10/16 - 08/10/16 [facility] [address] [place] [address] [address] [place] [address]- Discharge Disposition: 01 Discharged to Home or Self Care Attending Physician: CHILANGO Brumfield Vital Signs No data available for this [...] 1 Refill(s), Start Date: 9:31:00 CDT, Pharmacy: [facility] - [place], [place] Start Date: 01/12/15 Stop Date: 03/13/15 [...] tab(s), 0 Refill(s), Start Date: 03/29/15 19:00:00 SEMICONDUCTOR EQUIPMENT TECHNICIAN Start Date: 03/29/15 Stop Date: 07/03/16 Status: CompletedDiflucan 100 mg oral tablet 1 tab(s), Oral, Daily, # 7 tab(s), 0 Refill(s), Start Date: 01/15/15 13:33:00 CDT, Pharmacy: [place], [place] Start Date: 01/15/15 Stop Date: 07/05/16 Status: CompletedDulcolax Laxative 10 mg rectal suppository 1 supp, [place], Daily, PRN for constipation, # 10 supp, 0 Refill(s) Start Date: 10/03/13 Status: OrderedDulcolax Stool Softener 100 mg oral capsule 1 cap(s), Oral, BID, PRN for constipation, # 20 cap(s), 0 Refill(s), Start Date : 03/29/15 19:01:00 SEMICONDUCTOR EQUIPMENT TECHNICIAN Start Date: 03/29/15 Status: OrderedfentaNYL 50 mcg/hr transdermal film, extended release 50 mcg=, Topical, q3day, 0 Refill(s), Start Date: 12/15/14 16:01:00 CDT Start Date: 12/15/14 Status: OrderedfentaNYL 50 mcg/hr transdermal film, extended release 1 patch(es), Topical, q3day, 0 Refill(s) Start Date: 10/21/13 Stop Date: 12/15/14 Status: DiscontinuedFleet Enema mL, [place], ONETIME, 0 Refill(s), Start Date: 12/15/14 16:06:00 [...] mL, 0 Refill(s), Start Date: 03/29/15 19:01:00 SEMICONDUCTOR EQUIPMENT TECHNICIAN Start Date: 03/29/15 Stop Date: 03/29/15 Status: [...] 4-7, 0 Refill(s), Start Date: 07/05/16 12:34:00 SEMICONDUCTOR EQUIPMENT TECHNICIAN Start Date: 07/05/16 Status: OrderedPercocet 7.5/325 1 [...] TID, 0 Refill(s), Start Date: 07/05/16 12:30:00 SEMICONDUCTOR EQUIPMENT TECHNICIAN Start Date: 07/05/16 Status: OrderedSymbicort 160 mcg-4.5 mcg/inh inhalation aerosol 2 puff(s), Inhale, BID, # 1 EA, 5 Refill(s), Start Date: 01/12/15 9:36:00 CDT, samples given to patient (Rx), [id number], 01/26/16 Start Date: 01/12/15 Stop Date: 07/11/15 [...] Direct Laryngoscopy3 02/08/15 Flexible Bronchoscopy4 01/15/15 Colonoscopy5 7/23/15 Esophagogastroduodenoscopy6 12/17/14 Colonoscopy and biopsy of colon Discectomy7 1auto-populated from documented surgical mgio8qzle-eclqzhjjt from documented surgical ndge2jsni-endcwulzt from documented surgical jorp1zcsb-wndllirfj from documented surgical cfwb5njgt-hhpchoomx from documented surgical [id number]- populated from documented surgical [id number] Social History No data available for this section Assessment and Plan No data available for this section
--- OUTSIDE RECORDS SUMMARY | 2016-12-12 12:04 | XMS REPORT | Summary of Care ---
:1960 Author Organization [facility] Address [address] [place] [address]- Care Team Providers Name Role Phone Tevin Al Primary Care Physician Encounter Date(s): 08/03/16 - 08/03/[address] [address]- [facility] Discharge Disposition: 01 Discharged to Home or Self Care Attending Physician: Marin Flores DO Admitting Physician: Marin Flores DO Vital Signs Most recent to oldest 1 2 3 [Reference Range]: Temperature Temporal Artery 37 DegC 36.9 DegC [36-38 DegC] (08/03/16 10:30 AM) (08/03/16 9:03 AM) Heart Rate Monitored [60-100 78 bpm 82 bpm 80 bpm bpm] (08/03/16 10:57 AM) (08/03/16 10:40 AM) (08/03/16 10:35 AM) Respiratory Rate [12-20 br/min] 16 br/min 16 br/min 18 br/min (08/03/16 10:57 AM) (08/03/16 10:40 AM) (08/03/16 10:35 AM) SpO2 [90-100 %] 100 % 99 % 99 % (08/03/16 10:57 AM) (08/03/16 10:40 AM) (08/03/16 10:35 AM) SpO2 Location Right hand Right hand Right hand (08/03/16 10:57 AM) (08/03/16 10:40 AM) (08/03/16 10:35 AM) Blood Pressure [90-130/60-90 125/76mmHg 124/76mmHg 124/75mmHg mmHg] (08/03/16 10:57 AM) (08/03/16 10:40 AM) (08/03/16 10:35 AM) Mean Arterial Pressure Monitor 98 mmHg 95 mmHg 99 mmHg Measure (08/03/16 10:40 AM) (08/03/16 10:35 AM) (08/03/16 10:30 AM) Most recent to oldest [Reference Range]: 1 2 3 Height/Length Measured 173 cm (08/03/16 9:03 AM) Height/Length Estimated 172.72 cm (08/01/16 1:10 PM) Weight Estimated 65.8 kg (08/01/16 1:10 PM) Weight Dosing 61.1 kg (08/03/16 9:03 AM) Weight Measured 61.1 kg (08/03/16 9:03 AM) Body Mass Index Measured 20.41 kg/m2 (08/03/16 9:03 AM) Problem List Condition Effective Dates Status [...] 1 Refill(s), Start Date: 9:31:00 CDT, Pharm[place] Start Date: 01/12/15 Stop Date: 03/13/15 [...] tab(s), 0 Refill(s), Start Date: 03/29/15 19:00:00 [employer] Start Date: 03/29/15 Stop Date: 07/03/16 Status: CompletedDiflucan 100 mg oral tablet 1 tab(s), Oral, Daily, # 7 tab(s), 0 Refill(s), Start Date: 01/15/15 13:33:00 CDT, Pharmacy: [place], [place] Start Date: 01/15/15 Stop Date: 07/05/16 Status: CompletedDulcolax Laxative 10 mg rectal suppository 1 supp, NH, Daily, PRN for constipation, # 10 supp, 0 Refill(s) Start Date: 10/03/13 Status: OrderedDulcolax Stool Softener 100 mg oral capsule 1 cap(s), Oral, BID, PRN for constipation, # 20 cap(s), 0 Refill(s), Start Date : 03/29/15 19:01:00 [employer] Start Date: 03/29/15 Status: OrderedfentaNYL 50 mcg/hr [...] mL, 0 Refill(s), Start Date: 03/29/15 19:01:00 [employer]ATOR Start Date: 03/29/15 Stop Date: 03/29/15 Status: [...] 4-7, 0 Refill(s), Start Date: 07/05/16 12:34:00 [employer]ATOR Start Date: 07/05/16 Status: OrderedPercocet 7.5/325 1 [...] TID, 0 Refill(s), Start Date: 07/05/16 12:30:00 [employer]ATOR Start Date: 07/05/16 Status: OrderedSymbicort 160 mcg-4.5 mcg/inh inhalation aerosol 2 puff(s), Inhale, BID, # 1 EA, 5 Refill(s), Start Date: 01/12/15 9:36:00 CDT, samples given to patient (Rx), [id number], 01/26/16 Start Date: 01/12/15 Stop Date: 07/11/15 [...] Viewable Results Most recent to oldest [Reference Range]: 1 2 AN - Fi O2 25 % % 22 % % (08/03/16 10:30 AM) (08/03/16 10:25 AM) Estimated Creatinine Clearance 141.44 mL/min (08/03/16 9:25 AM) Immunizations Vaccine Date Refusal Reason influenza virus vaccine, inactivated 03/28/14 pneumococcal 23-polyvalent vaccine 03/30/14 Procedures Procedure Date Related Diagnosis Body Site Colonoscopy1 08/03/16 Esophagogastroduodenoscopy2 07/06/16 Direct Laryngoscopy3 02/08/15 Flexible Bronchoscopy4 01/15/15 Colonoscopy5 12/17/14 Esophagogastroduodenoscopy6 12/17/14 Colonoscopy and biopsy of colon Discectomy7 1auto-populated from documented surgical [id number] from documented surgical [id number] from documented surgical [id number] from documented surgical [id number] from documented surgical [id number]- populated from documented surgical [id number] Social History No data available for this section Assessment and Plan No data available for this section
[2016-12-12 12:11] LABS: Urine Appearance Clear; Urine Bacteria 1+; Urine Color Dark Yellow; Urine RBC None Seen /hpf (0-5)
[2016-12-12] MEDS ORDERED: CIPROFLOXACIN HCL 250 MG TABLET PO ONE (12:52)
[2016-12-12] MEDS ORDERED: CIPROFLOXACIN HCL 250 MG TABLET ONE (12:55)
[2016-12-12 13:04] VITALS: BP 116/70
== END 2016-12-12 13:01 | disposition home or self-care (01) ==
LOC: ER 11:14
DX: N30.00 Acute cystitis without hematuria (principal); F17.210 Nicotine dependence, cigarettes, uncomplicated

== ENCOUNTER 2017-04-09 15:58 | Emergency (ER) | payer MEDICARE ==
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
[2017-04-09 17:47] LABS: Urine Bilirubin Negative (NEGATIVE); Urine Blood Negative /ul (NEGATIVE); Urine Ketone Negative (NEGATIVE); Urine Nitrite Negative (NEGATIVE); Urine Protein Negative (NEGATIVE); Urine Specific Gravity >=1.030 SP.GR. (1.005-1.030); Urine Urobilinogen Normal (NORMAL); Urine pH 5.5 pH (5.0-7.0)
[2017-04-09 17:58] LABS: Urine Appearance Clear; Urine Bacteria TRACE; Urine Color Orange; Urine RBC TRACE /hpf (0-5); Urine WBC None Seen /hpf (0-5)
[2017-04-09 18:27] LABS: Hematocrit 38.2 % (42.0-52.0); Mean Cell Volume 95.3 fl (78-100); Mean Corpuscular Hemoglobin 32.4 pg (27-31); Mean Platelet Volume 9.8 fl (6.0-9.5); Neutrophil # 3.1 K/mm3 (1.3-6.0); Neutrophil % 50.6 % (42-75.0); Platelet Count 128 K/mm3 (150-450); Red Blood Count 4.01 M/mm3 (4.7-6.0); Red Cell Distribution Width 13.6 % (11.5-14.0); White Blood Count 6.1 K/mm3 (4.0-10.5)
[2017-04-09 18:41] LABS: Albumin * 3.5 gm/dl (3.4-5.0); Anion Gap 8.8 mmol/L (6.8-13.8); BUN/Creatinine Ratio 18.1 (9.0-21.6); Bilirubin, Total 0.2 mg/dL (0.0-1.1); Ca. Corrected For Albumin 8.7 mg/dL (8.4-10.2); Calcium * 8.6 mg/dL (7.9-10.9); Carbon Dioxide 31.8 mmol/L (24-32.6); Potassium 3.6 mmol/L (3.4-4.6); Total Protein 6.9 gm/dL (6.2-8.2)
[2017-04-09] MEDS ORDERED: DIATRIZOATE MEGLUMINE, SODIUM 30 ML BTL ONE (18:53)
[2017-04-09] MEDS ORDERED: ALPRAZolam 0.25 MG TABLET PO ONE (19:34)
[2017-04-09] MEDS ORDERED: ACETAMINOPHEN 325 MG TABLET PO ONE (19:34)
[2017-04-09] MEDS ORDERED: oxyCODONE HCL/ACETAMINOPHEN 1 TAB TABLET PO ONE (19:34)
[2017-04-09] MEDS ORDERED: ALPRAZolam 0.25 MG TABLET ONE (19:39)
[2017-04-09] MEDS ORDERED: ACETAMINOPHEN 325 MG TABLET ONE (19:39)
[2017-04-09] MEDS ORDERED: oxyCODONE HCL/ACETAMINOPHEN 1 TAB TABLET ONE (19:39)
[2017-04-09] MEDS ORDERED: ONDANSETRON HCL/PF 2 MG/ML VIAL IV ONE (21:51)
[2017-04-09] MEDS ORDERED: MORPHINE SULFATE 4 MG/ML SYRG IV ONE (21:51)
[2017-04-09] MEDS ORDERED: ONDANSETRON HCL/PF 2 MG/ML VIAL ONE (21:57)
[2017-04-09] MEDS ORDERED: MORPHINE SULFATE 4 MG/ML SYRG ONE (21:57)
[2017-04-09 22:17] VITALS: BP 132/74
== END 2017-04-09 22:14 | disposition home or self-care (01) ==
LOC: ER 15:58
PROC: 0T9B7ZZ Drainage of Bladder, Via Natural or Artificial Opening (ICD-10-PCS; principal; 2017-04-09)
DX: K59.03 Drug induced constipation (principal); T40.2X5A Adverse effect of other opioids, initial encounter; G89.21 Chronic pain due to trauma; Z87.440 Personal history of urinary (tract) infections; F17.200 Nicotine dependence, unspecified, uncomplicated
CPT/HCPCS: 36415; 51701; 70450; 74020; 74177; 80053; 81001; 85025; 96365; 96375; 99284; J2405

== ENCOUNTER 2019-05-15 14:02 | Observation (INO) ==
[2019-05-15] MEDS ORDERED: PANTOPRAZOLE SODIUM 40 MG/100 ML PIGGYBACK IV ONE ×2 (14:17→16:53)
[2019-05-15 14:53] LABS: Hematocrit 40.8 % (42.0-52.0); Hemoglobin 14.5 gm/dL (13.5-18.0); Mean Cell Volume 93.8 fl (78-100); Mean Corpuscular Hemoglobin 33.3 pg (27-31); Mean Corpuscular Hgb Conc 35.5 g/dl (32-36); Mean Platelet Volume 11.3 fl (8-11.3); Platelet Count 117 K/mm3 (150-450); Red Blood Count 4.35 M/mm3 (4.7-6.0); Red Cell Distribution Width 15.3 % (11.5-14.0); White Blood Count 5.3 K/mm3 (4.0-10.5)
[2019-05-15 14:59] LABS: Albumin * 3.1 gm/dl (3.4-5.0); Anion Gap 10.5 mmol/L (6.8-13.8); BUN/Creatinine Ratio 11.5 (9.0-21.6); Bilirubin, Total 0.6 mg/dL (0.0-1.1); Ca. Corrected For Albumin 8.5 mg/dL (8.4-10.2); Calcium * 8.1 mg/dL (7.9-10.9); Magnesium 1.5 mg/dL (1.2-2.8)
[2019-05-15 15:01] LABS: Potassium 2.5 mmol/L (3.4-4.6)
[2019-05-15] MEDS ORDERED: POTASSIUM CHLORIDE 20 MEQ TABLET.SA PO ONE (15:03)
[2019-05-15 15:06] LABS: INR 1.12 INR (0.92-1.08)
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
[2019-05-15] MEDS: POTASSIUM CHLORIDE 20 MEQ in 0.5 NORMAL SALINE 1,000 ML IV SCH (17:26)
[2019-05-15] MEDS: POTASSIUM CHLORIDE IN WATER 100 ML IV SCH ×4 (17:30→22:53)
[2019-05-15] MEDS ORDERED: ONDANSETRON HCL/PF 2 MG/ML VIAL IV PRN (17:52)
[2019-05-15] MEDS ORDERED: NICOTINE 21 MG PATC TD SCH (18:00)
[2019-05-15 18:36] LABS: Hematocrit 40.2 % (42.0-52.0); Hemoglobin 14.1 gm/dL (13.5-18.0)
[2019-05-15] MEDS: MORPHINE SULFATE 10 MG/ML SYRG IV PRN (19:16)
[2019-05-15] MEDS ORDERED: ALPRAZolam 1 MG TABLET PO PRN (19:42)
[2019-05-15] MEDS ORDERED: AMITRIPTYLINE HCL 25 MG TABLET PO SCH (21:00)
[2019-05-16 00:26] LABS: Hematocrit 38.5 % (42.0-52.0); Hemoglobin 13.5 gm/dL (13.5-18.0)
[2019-05-16] MEDS: MORPHINE SULFATE 10 MG/ML SYRG IV PRN ×2 (00:33→04:33)
[2019-05-16] MEDS ORDERED: LORazepam 2 MG/ML DISP.SYRIN IV PRN (02:37)
[2019-05-16] MEDS: POTASSIUM CHLORIDE 20 MEQ in 0.5 NORMAL SALINE 1,000 ML IV SCH (03:15)
[2019-05-16 06:31] LABS: Hematocrit 37.8 % (42.0-52.0); Hemoglobin 13.1 gm/dL (13.5-18.0)
[2019-05-16 06:39] LABS: Anion Gap 9.1 mmol/L (6.8-13.8); BUN/Creatinine Ratio 9.8 (9.0-21.6); Calcium * 8.2 mg/dL (7.9-10.9); Carbon Dioxide 32.7 mmol/L (24-32.6); Estimated Creat Clear 152.7; Potassium 3.8 mmol/L (3.4-4.6)
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
[2019-05-16] MEDS ORDERED: BISACODYL 5 MG TABLET.DR PO PRN (08:35)
[2019-05-16] MEDS ORDERED: oxyCODONE HCL/ACETAMINOPHEN 1 TAB TABLET PO PRN (08:35)
--- NOTE | 2019-05-16 08:55 | CONS ---
HPI - General Date of Service: 05/15/19 Source: patient, RN/MD, RN notes reviewed, old records Exam Limitations: no limitations - History of Present Illness Initial Comments: He was brought to the hospital after large volume vomiting of coffee-ground material with streaks of blood. Associated Symptoms: other - He describes heartburn and reflux of bitter material. He also has lower abdominal discomfort and problems with constipation. He denies seeing blood in the bowel movements Allergies/Adverse Reactions: Allergies latex Allergy (Verified 05/15/19 17:43) unknown Home Medications: Home Medications Medication Instructions Recorded Last Taken carisoprodol 350 mg tablet 350 mg PO TID 12/11/17 05/16/18 alprazolam 1 mg tablet 1 mg PO TID 01/13/19 Unknown amitriptyline 25 mg tablet 25 mg PO HS tab 01/13/19 Unknown furosemide 20 mg tablet 20 mg PO DAILY 01/13/19 Unknown linaclotide 145 mcg capsule 145 mcg PO DAILY 01/13/19 Unknown oxycodone-acetaminophen 5 mg-325 1 tab PO BID PRN tab 01/13/19 Unknown mg tablet tizanidine 4 mg capsule 4 mg PO 0900,1700,2100 01/13/19 Unknown Bisacodyl 10 mg PO DAILY PRN 05/15/19 Unknown oxyCODONE HCL [Oxycontin] 60 mg PO BID 05/15/19 Unknown Ondansetron HCl [Zofran] 4 mg PO QID PRN #20 tab 05/16/19 Unknown Pantoprazole Sodium [Protonix] 40 mg PO DAILY #30 tablet. 05/16/19 Unknown Procedures Application of other wound dressing (05/31/07) Closure of skin and subcutaneous tissue of other sites (01/15/08) Drainage of Bladder, Via Natural or Artificial Opening (04/09/17) Insertion of endotracheal tube (06/28/04) Introduction of Anesthetic Agent into Joints, Percutaneous Approach (06/25/18) Introduction of Anti-inflammatory into Joints, Percutaneous Approach (06/25/18) Non-invasive mechanical ventilation (06/28/04) Repair Scalp Skin, External Approach (12/22/15) Venous catheterization, not elsewhere classified (06/28/04) Medications - Medications Current Medications: Current Medications Potassium Chloride 20 meq/ (Sodium Chloride) 1,010 mls @ 100 mls/hr IV .Q10H6M STEPHON Stop: 06/14/19 17:01 Last Admin: 05/16/19 03:15 Dose: 100 mls/hr Documented by: Nicotine (Nicoderm) 21 mg TD Q24H [facility] Stop: 06/14/19 18:01 Last Admin: 05/15/19 19:15 Dose: 21 mg Documented by: Review of Systems - Review of Systems Generalized/Overall Review: Present: Weakness EENTM: Present: No Symptoms Reported Respiratory: Absent: Wheezing Cardiac: Present: Edema - He has swelling in his lower legs and is being seen in the wound clinic. Absent: Chest Pain, Palpitations Abdominal: Present: Abdominal Pain, Other - Heartburn and reflux. Constipation. Lower abdominal pain. No blood in the stool Genitourinary: Present: No Symptoms Reported Musculoskeletal: Present: Other - Pain and swelling in his feet Neurological: Present: Other - Chronic pain Skin: Present: Other - Swelling and discoloration in the feet Physical Examination - Exam Vital Signs: Vital Signs - Last Taken Temp 36.6 C 05/16/19 01:56 Pulse 99 05/16/19 05:02 Resp 18 05/16/19 01:56 BP 136/76 05/16/19 01:56 Pulse Ox 98 05/16/19 01:56 O2 Oxygen Delivery Method Nasal Cannula Constitutional: Present: Alert, Oriented x3, Mild distress, Other - Very slow speech ENT Exam: Present: normal ENT inspection Neck: Present: full range of motion, normal inspection Breasts: Present: Exam deferred Respiratory: Present: no respiratory distress Cardiovascular/Chest: Present: regular rate, rhythm Abdomen: Present: soft, other - No discrete point tenderness. No percussion tenderness, guarding, or rebound. /Rectal: Present: Exam deferred Extremity: Present: other - Trace edema pretibially. Bluish discoloration of toes, although bounding posterior tibial pulse and brisk capillary refill Skin Exam: Present: other - Abnormal coloration of the toes Neurologic: Present: other - Generalized weakness Appearance: Present: disheveled Eye contact: Present: decreased rate of speech Thoughts: Present: normal thought pattern, no apparent hallucination - Results and Findings: Lab/Microbiology results last 24 hrs: Abnormal/Pending Laboratory Last 24 HRS 05/16/19 05/16/19 05/16/19 06:12 06:12 00:15 RBC Hgb 13.1 L Hct 37.8 L 38.5 L MCH RDW Plt Count Lymphocytes % Lymphocytes # PT INR (Anticoag Therapy) Potassium Chloride 96 L Carbon Dioxide 32.7 H BUN 5 L Est GFR (Non-Af Amer) 177 H D ALT Albumin Lipase 05/15/19 05/15/19 05/15/19 18:35 16:45 14:38 RBC Hgb Hct 40.2 L MCH RDW Plt Count Lymphocytes % Lymphocytes # PT INR (Anticoag Therapy) Potassium 2.5 L D Chloride 95 L Carbon Dioxide 34.0 H BUN Est GFR (Non-Af Amer) 144 H ALT 10 L Albumin 3.1 L Lipase 30 L 05/15/19 05/15/19 14:38 14:38 RBC 4.35 L Hgb Hct 40.8 L MCH 33.3 H RDW 15.3 H Plt Count 117 L Lymphocytes % 14.9 L Lymphocytes # 0.79 L PT 11.0 H INR (Anticoag Therapy) 1.12 H Potassium Chloride Carbon Dioxide BUN Est GFR (Non-Af Amer) ALT Albumin Lipase - Assessments/Findings (1) Hematemesis Diagnosis(s): He had coffee-ground vomiting with streaks of blood. He does have symptoms of GERD. He has not seen blood in his stool. His hemoglobin has remained stable and he is hemodynamically normal Whether the bleeding is from gastropathy or ulcer is unclear. He does not have constant epigastric pain to suggest an ulcer. An EGD could be arranged as an outpatient. Pamphlets on EGD and GERD were reviewed with the patient and given to him. Case was discussed with Dr. Luque. Problem: Acute Qualifiers: Nausea presence: with nausea Qualified Code(s): K92.0 - Hematemesis
[2019-05-16] MEDS ORDERED: tiZANidine HCL 4 MG TABLET PO SCH (09:00)
[2019-05-16] MEDS ORDERED: CARISOPRODOL 350 MG TABLET PO SCH (09:00)
[2019-05-16] MEDS ORDERED: ALPRAZolam 1 MG TABLET PO SCH (09:00)
[2019-05-16 11:33] VITALS: BP 103/70
[2019-05-16] MEDS ORDERED: PANTOPRAZOLE SODIUM 40 MG in NORMAL SALINE 100 ML IV SCH (17:00)
[2019-05-16] MEDS ORDERED: AMITRIPTYLINE HCL 25 MG TABLET PO SCH (21:00)
[2019-05-17] MEDS ORDERED: PANTOPRAZOLE SODIUM 40 MG TABLET.EC PO SCH (07:00)
== END 2019-05-16 11:25 | disposition home health service (06) ==
LOC: MS 14:02 → ER 14:02 → MS 17:35
PROVIDERS: ADMIT Internal Medicine; ATTEND Internal Medicine
CPT/HCPCS: 36415; 71010; 71045; 74019; 74020; 80048; 80053; 83690; 83735; 84484; 85014; 85018; 85025; 85610; 93005; 96365; 96366; 96375; 99285; G0378